=== PATIENT | female | born 1990 | race Caucasian/White ===

== ENCOUNTER 2019-12-18 22:09 | Emergency (ER) | payer OTHER ==
[~2019-12-18] VITALS: Ht 162.6 cm; Wt 68.0 kg
[2019-12-18 22:09] VITALS: BP_SYST 133
--- NOTE | 2019-12-18 22:09 | NUR ---
Pt ambulatory to bed 3 for evaluation
--- NOTE | 2019-12-18 22:15 | NUR ---
ER at bedside examining patient.
--- NOTE | 2019-12-18 22:20 | NUR ---
HERE FOR SEVERAL HOURS OF ANXIETY WITH CHEST TIGHTNESS, RESP UNLABORED, SKIN WARM AND DRY. COMMUNICATES CLEARLY IN FULL COMPLETE SENTENCES, NAD. PT STATED FEELING BETTER AND TOOK HER XANAX AT HOME PRIOR TO ARRIVAL.
--- NOTE | 2019-12-18 22:38 | NUR ---
EKG COMPLETED, NSR NO ECTOPY. RESP UNLABORED
[2019-12-18 23:06] VITALS: BP_SYST 121
--- NOTE | 2019-12-18 23:08 | NUR ---
Patient given written and verbal discharge instructions and verbalizes understanding. ER MD discussed with patient the results and treatment provided. Patient in stable condition. ID arm band removed. Patient educated on pain management and to follow up with PMD. Pain Scale 0/10 Opportunity for questions provided and answered. Medication side effect fact sheet provided.
== END 2019-12-18 23:08 | disposition home or self-care (01) ==
LOC: SED 22:09
DX: F41.9 Anxiety disorder, unspecified (principal); R03.0 Elevated blood-pressure reading, without diagnosis of hypertension
CPT/HCPCS: 93005; 99283